=== PATIENT | female | born 1975 | race African-American/Black ===

== ENCOUNTER 2023-09-12 11:00 | Observation (INO) ==
[2023-09-12] MEDS ORDERED: Nitro 2% OINT (Nitroglycerin) 1 INCH/PAK ONE (11:50)
[2023-09-12] MEDS ORDERED: Scopolamine 1 mg/72hr PATCH ONE (12:05)
[2023-09-12] MEDS ORDERED: oxyCODONE SR 10 mg TAB ONE (12:05)
[2023-09-12] MEDS ORDERED: Ondansetron 4 mg VIAL 2 MG/ML 2 ml VIAL ONE (12:05)
[2023-09-12] MEDS ORDERED: Clindamycin 900 MG/50 **NS BAG 900 MG/50 ML BAG ONE (12:10)
[2023-09-12 12:32] LABS: ABS Eosinophils 0.1 10^3/uL (0.0-0.5); ABS Lymphocytes 2.2 10^3/uL (1.0-4.8); ABS Monocytes 0.4 10^3/uL (0.0-0.9); ABS Neutrophils 2.8 10^3/uL (1.5-7.6); Eosinophil % 1.9 %; Hematocrit 41.1 % (35-45); Hemoglobin 13.5 g/dL (11.5-14.3); Lymphocyte % 39.5 %; Mean Corpuscular Hgb Conc 32.8 g/dL (31-36); Mean Corpuscular Volume 85.3 fL (80-97); Mean Platelet Volume 8.1 fL (7.5-11.2); Nucleated Red Blood Cells % 0.1 %/100WBC (0.0-0.8); Platelet Count 250 10^3/uL (150-450); Red Blood Count 4.82 10^6/uL (3.63-4.92); Red Cell Distribution Width 13.4 % (12-17); White Blood Count 5.6 10^3/uL (3.8-11.8)
[2023-09-12] MEDS ORDERED: Iohexol 350 (CONTRAST) 100 ML PAK IV ONE ×2 (13:05→14:51)
[2023-09-12] MEDS ORDERED: Heparin 2 UNITS/ML IVPREMIX 3,000 UNIT/1,500 ML BAG IV ONE (13:05)
[2023-09-12] MEDS ORDERED: Naloxone 0.4 mg VIAL 0.4 mg/ml 1 ml VIAL IV PUSH PRN (13:09)
[2023-09-12] MEDS ORDERED: Flumazenil 0.5 mg/5 ml 0.1 MG/ML 5 ml VIAL IV PRN (13:09)
[2023-09-12 13:11] LABS: HCG Pregnancy 3.93 mIU/mL
[2023-09-12] MEDS ORDERED: Lidocaine 1% MPF 5 ML VIAL ONE (13:11)
[2023-09-12] MEDS ORDERED: Midazolam 5 mg/5 ml VIAL 1 mg/ml 5 ml VIAL (5 mg) ONE (13:13)
[2023-09-12] MEDS ORDERED: fentaNYL 100 mcg/2 ml 50 MCG/ML VIAL ONE ×2 (13:13→14:13)
[2023-09-12] MEDS ORDERED: nitroGLYCERIN DRIP 25,000 MCG/250 ML BTL ONE (13:14)
[2023-09-12] MEDS ORDERED: Heparin 1,000 UNIT/ML 10 ml (10,000 UNITS) CATHLAB/DIALYSIS ONE (13:16)
[2023-09-12] MEDS ORDERED: VERAPAMIL 2.5 MG/ML 2 ML VIAL ** 5 mg/2 ml ONE ×2 (13:16→15:41)
[2023-09-12] MEDS ORDERED: Heparin 2 UNITS/ML 1000 mls 1,000 ML IV ONE (15:12)
[2023-09-12 16:02] LABS: Calcium 9.9 mg/dL (8.6-10.3); Creatinine, Serum 0.85 mg/dL (0.51-0.95); Potassium 4.1 mmol/L (3.5-5.0); eGFR CKD-EPI 83.4 (>60)
[2023-09-12] MEDS ORDERED: HYDROmorphone 1 MG/1 ML SYRINGE ONE (16:23)
[2023-09-12] MEDS: HYDROmorphone 1 MG/1 ML SYRINGE IV SLOW PU PRN (16:27)
[2023-09-12] MEDS ORDERED: HYDROmorphone 1 MG/1 ML SYRINGE IV PRN (16:48)
[2023-09-12] MEDS: Midazolam 10 mg/10 ml VIAL 1 mg/ml 10 ml VIAL (10 mg) IV SLOW PU ONE (16:50)
[2023-09-12] MEDS: fentaNYL 100 mcg/2 ml 50 MCG/ML VIAL IV SLOW PU ONE (16:50)
[2023-09-12] MEDS: Ondansetron 4 mg VIAL 2 MG/ML 2 ml VIAL IV SCH (19:34)
[2023-09-13] MEDS: Ketorolac 10 mg TAB (NF) PO SCH (08:28)
[2023-09-13] MEDS: Prochlorperazine 5 mg/ml 2 ml VIAL (10 mg) IV ONE (09:11)
[2023-09-13] MEDS: HYDROcodone/ACETAMIN 5/325 mg TAB PO PRN (09:12)
[2023-09-13 11:20] VITALS: BP 118/86
[2023-09-13] MEDS ORDERED: Ketorolac 10 mg TAB (NF) PO SCH (13:30)
== END 2023-09-13 11:54 | disposition home or self-care (01) ==
LOC: CHICATH 11:00 → SSU 11:00 → SUATTDRO 17:12
PROVIDERS: ADMIT Radiology Diagnostic Radiology; ATTEND Student in an Organized Health Care Education/Training Program
PROC: ANG.UFE (2023-09-12 13:15)